=== PATIENT | male | born 1975 | race American Indian/Alaskan Native ===

== ENCOUNTER 2018-02-13 02:52 | Emergency (ER) | payer OTHER ==
--- NOTE | 2018-02-13 04:26 | Cat Scan Report ---
FINAL REPORT PROCEDURE: CT CERVICAL SPINE WO CON TECHNIQUE: Computerized tomography of the cervical spine was performed from the skull base to T1 without contrast material. HISTORY: Fall/ head and facial injuries COMPARISON: No prior studies are available for comparison. FINDINGS: There are no fractures or malalignments. C1-2: No significant abnormality. C2-3: No significant abnormality. C3-4: No significant abnormality. C4-5: No significant abnormality. C5-6: No significant abnormality. C6-7: No significant abnormality. C7-T1: No significant abnormality. Other: There is no prevertebral soft tissue swelling.. IMPRESSION: No significant abnormality.
--- NOTE | 2018-02-13 04:28 | Cat Scan Report ---
FINAL REPORT PROCEDURE: CT HEAD/BRAIN WO CON TECHNIQUE: Computerized tomography of the head was performed without contrast material. HISTORY: Fall/ head and facial injuries COMPARISON: No prior studies are available for comparison. FINDINGS: Skull and scalp: There is frontal scalp swelling. There is no fracture.. Paranasal sinuses: Normal. Ventricles and subarachnoid spaces: Normal. Cerebrum: No evidence of hemorrhage, acute infarction or mass . Cerebellum and brainstem: No evidence of hemorrhage, acute infarction or mass. Vasculature: Normal. Comments: None. IMPRESSION: There is frontal scalp swelling. There is no skull fracture. There is no intracranial hemorrhage.
--- NOTE | 2018-02-13 04:32 | Cat Scan Report ---
FINAL REPORT PROCEDURE: CT FACIAL BONES WO CON TECHNIQUE: Computerized tomography of the facial bones and soft tissues with axial and coronal sections performed from the cranial aspect of the frontal sinuses to the caudal portion of the mandible without contrast material. HISTORY: Fall/ head and facial injuries COMPARISON: No prior studies are available for comparison. FINDINGS: Bones: No significant abnormality. Paranasal sinuses: Clear. Soft tissues: There is frontal and perinasal soft tissue swelling. There is subcutaneous air in the paranasal soft tissues.. Other: There is bilateral proptosis.. IMPRESSION: No fractures are identified.
[2018-02-13] MEDS ORDERED: PERCOCET 5/325 PO ONE (05:29)
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
[2018-02-13] MEDS ORDERED: XYLOCAINE 1% MPF 5 mL ONE (06:26)
[2018-02-13] MEDS ORDERED: XYLOCAINE 1% MPF 5 mL INFILTRATI ONE (06:30)
[2018-02-13] MEDS ORDERED: BOOSTRIX IM ONE (06:38)
[2018-02-13 07:04] VITALS: BP 132/88
== END 2018-02-13 07:08 | disposition home or self-care (01) ==
LOC: ED 02:52
DX: S09.90XA Unspecified injury of head, initial encounter (principal); S01.81XA Laceration without foreign body of other part of head, initial encounter; H11.32 Conjunctival hemorrhage, left eye; M54.2 Cervicalgia; W18.30XA Fall on same level, unspecified, initial encounter; Y93.89 Activity, other specified; Y99.8 Other external cause status; Y92.89 Other specified places as the place of occurrence of the external cause
CPT/HCPCS: 70450; 70486; 72125; 90471; 90715